=== PATIENT | female | born 1970 | race Two or more races ===

== ENCOUNTER 2019-08-13 14:57 | Inpatient (IN) | payer OTHER ==
[2019-08-13 18:22] VITALS: BMI 35.2
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
[2019-08-13] MEDS ORDERED: IBUPROFEN 400 MG TABLET (FP) PO PRN (20:50)
[2019-08-13] MEDS ORDERED: LOPERAMIDE HCL 2 MG CAPSULE PO PRN (20:50)
[2019-08-13] MEDS ORDERED: MENTHOL/PHENOL 1 EACH UD MM PRN (20:50)
[2019-08-13] MEDS ORDERED: P-EPHED 60MG/TRIPROLIDI 2.5MG TABLET PO PRN (20:50)
[2019-08-13] MEDS ORDERED: guaiFENesin 200 MG/10 ML 10 ML UNIT-DOSE CUPS PO PRN (20:50)
[2019-08-13] MEDS: NICOTINE 21 MG/24 HOURS TOPICAL PATCH TD SCH (23:17)
[2019-08-13] MEDS: THIAMINE HCL 100 MG TABLET (FP) PO SCH (23:17)
[2019-08-13] MEDS: ACETAMINOPHEN 325 MG TABLET (FP) PO PRN (23:17)
[2019-08-13] MEDS: diphenhydrAMINE HCL 25 MG CAPSULE (FP) PO PRN (23:17)
[2019-08-13] MEDS: GABAPENTIN 100 MG CAPSULE (FP) PO SCH (23:17)
[2019-08-14] MEDS: GABAPENTIN 100 MG CAPSULE (FP) PO SCH ×3 (06:31→21:54)
[2019-08-14] MEDS: ACETAMINOPHEN 325 MG TABLET (FP) PO PRN ×2 (06:31→10:40)
[2019-08-14] MEDS ORDERED: LEVOTHYROXINE NA 150 MCG TABLET PO SCH (07:00)
[2019-08-14] MEDS ORDERED: LEVOTHYROXINE NA 100 MCG TABLET (FP) ONE (07:19)
[2019-08-14] MEDS ORDERED: LEVOTHYROXINE NA 25 MCG TABLET (FP) ONE (07:19)
[2019-08-14] MEDS: LEVOTHYROXINE 50 MCG, LEVOTHYROXINE 100 MCG PO SCH (07:28)
[2019-08-14] MEDS: MAGNESIUM HYDROX 2400MG/30ML ORAL SUSPENSION 30 ML CUP PO PRN (10:36)
[2019-08-14] MEDS: NICOTINE 21 MG/24 HOURS TOPICAL PATCH TD SCH (10:37)
[2019-08-14] MEDS: PRENATAL VITAMINS W/ FOLIC ACID TABLET (FP) PO SCH (10:37)
[2019-08-14] MEDS: NICOTINE POLACRILEX 2 MG GUM BUC PRN ×2 (10:39→17:06)
[2019-08-14] MEDS: VITAMINS A AND D TOPICAL OINTMENT 60 GM TUBE TP SCH (11:17)
[2019-08-14 12:31] LABS: HEMATOCRIT 42.1 % (32.4-45.2); HEMOGLOBIN 13.5 GM/dL (10.7-15.3); MCH 25.2 pg (25.7-33.7); MEAN CELL VOLUME 78.9 fl (80-96); MEAN PLT VOLUME 8.5 fl (7.5-11.1); PLATELET COUNT 275 K/MM3 (134-434); RBC 5.34 M/mm3 (3.60-5.2); RDW 15.2 % (11.6-15.6); WHITE BLOOD COUNT 4.8 K/mm3 (4.0-10.0)
[2019-08-14 12:42] LABS: EPI CELLS 3.6 /HPF (0-5/HPF); HYALINE CASTS 1 /lpf (0-8); PH,URINE 6.5 (5.0-8.0); URINE APPEARANCE CLEAR; URINE BACTERIA 60.4 /hpf (NEGATIVE); URINE BILIRUBIN NEGATIVE (NEGATIVE); URINE COLOR YELLOW; URINE GLUCOSE (UA) NEGATIVE (NEGATIVE); URINE KETONE NEGATIVE (NEGATIVE); URINE LEUK ESTERASE TRACE (NEGATIVE); URINE NITRITE NEGATIVE (NEGATIVE); URINE PROTEIN NEGATIVE (NEGATIVE); URINE RBC 2 /hpf (0-4); URINE UROBILINOGEN 0.2 mg/dL (0.2-1.0); URINE WBC 2 /hpf (0-5)
[2019-08-14 12:43] LABS: ALBUMIN 3.7 g/dl (3.4-5.0); BILIRUBIN,TOTAL 0.2 mg/dL (0.2-1); CALCIUM 9.1 mg/dL (8.5-10.1); CREATININE 0.9 mg/dL (0.55-1.3); POTASSIUM 4.4 mmol/L (3.5-5.1); TOT PROT 6.9 g/dl (6.4-8.2)
[2019-08-14] MEDS: MAG HYDROX/AL HYDROX/SIMETH 30 ML UNIT-DOSE CUP PO PRN (12:58)
--- NOTE | 2019-08-14 13:32 | PN ---
S Progress Note (SOAP) Subjective: patient c/o chest pain, first on the right, then moved to the left. Was given mylanta by nurse Marcus. Reports that her food has been repeating, belching. Also c/o back pain as a result of injury with subsequent surgery of right leg. Objective: General;no apparent distress HEENTM: normocephalic Lungs: clear Heart: s1 s2 Neuro: CN 2-12 intact MSK: Right leg with surgical scar posterior aspect of knee, full weight bearing , steady gait, Extremities: color and temperature equal bilaterally. Surgical scar posterior aspect right knee. slight non-pitting edema right ankle. Vital Signs (72 hours) 08/13/19 08/14/19 08/14/19 18:02 03:30 07:06 Temperature 97.3 F L 97.0 F L Pulse Rate 93 H 85 Respiratory 20 18 18 Rate Blood Pressure 127/92 106/70 08/14/19 12:58 Temperature 97.4 F L Pulse Rate 64 Respiratory 20 Rate Blood Pressure 114/77 CBC, BMP 08/14/19 08:50 08/14/19 08:50 08/14/19 13:27 Assessment: Indigestion right ankle edema-possibly a result of surgery or injury, chronic back pain 08/14/19 13:31 08/14/19 13:31 08/14/19 13:36 Plan: Indigestion: encouraged to take Mylanta as needed, protonix ordered LBP: pt on Flexeril, started on lidoderm patch and anjali-christine Edema, ankle: Instructed to elevate legs, oneyda bandage if needed for support.
[2019-08-14] MEDS: LIDOCAINE 5% TOPICAL PATCH TP SCH (15:10)
[2019-08-14] MEDS: CYCLOBENZAPRINE HCL 5 MG TABLET PO SCH ×2 (15:10→21:54)
[2019-08-14] MEDS: SODIUM CHLORIDE NASAL SPRAY 44 ML BOTTLE NS PRN (15:11)
[2019-08-14] MEDS: diphenhydrAMINE HCL 25 MG CAPSULE (FP) PO PRN (21:54)
[2019-08-14] MEDS: THIAMINE HCL 100 MG TABLET (FP) PO SCH (21:54)
[2019-08-14] MEDS: METHYL SALICYLATE/MENTHOL OINT 30 GM TUBE TP SCH (21:55)
[2019-08-14] MEDS: LIDOCAINE PATCH REMOVAL MC SCH (21:55)
[2019-08-15] MEDS: GABAPENTIN 100 MG CAPSULE (FP) PO SCH ×3 (06:50→21:56)
[2019-08-15] MEDS: ACETAMINOPHEN 325 MG TABLET (FP) PO PRN ×2 (06:50→21:58)
[2019-08-15] MEDS: LEVOTHYROXINE 50 MCG, LEVOTHYROXINE 100 MCG PO SCH (06:50)
[2019-08-15] MEDS: CYCLOBENZAPRINE HCL 5 MG TABLET PO SCH ×3 (06:50→21:56)
[2019-08-15] MEDS: LIDOCAINE 5% TOPICAL PATCH TP SCH (09:27)
[2019-08-15] MEDS: METHYL SALICYLATE/MENTHOL OINT 30 GM TUBE TP SCH (09:27)
[2019-08-15] MEDS: VITAMINS A AND D TOPICAL OINTMENT 60 GM TUBE TP SCH (09:28)
[2019-08-15] MEDS: PRENATAL VITAMINS W/ FOLIC ACID TABLET (FP) PO SCH (09:28)
[2019-08-15] MEDS: NICOTINE 21 MG/24 HOURS TOPICAL PATCH TD SCH (09:28)
[2019-08-15] MEDS: PANTOPRAZOLE 40 MG TABLET (FP) PO SCH (09:28)
[2019-08-15] MEDS: NICOTINE POLACRILEX 2 MG GUM BUC PRN ×2 (12:32→21:30)
[2019-08-15] MEDS ORDERED: NICOTINE 21 MG/24 HOURS TOPICAL PATCH TD SCH (21:40)
--- NOTE | 2019-08-15 21:50 | PN ---
[facility] Progress Note Note: Patient upset. Crying and verbally loud spoken. States needs to see Psych because very anxious and needs vistaril. Has been refusing nicotine patch because wanted to stop. Discussed the side effects of acute nicotine withdrawal and now willing to taper down. Will start on 14 mg x 7 days and then 7 mg x 7 days. Patient states back aches worse in early am and requesting lidocaine patch application earlier. MH: patient states no longer on prozac or haldol. Psych consult in place.
[2019-08-15] MEDS: THIAMINE HCL 100 MG TABLET (FP) PO SCH (21:56)
[2019-08-15] MEDS: MELATONIN 5 MG TABLETS PO PRN (21:57)
[2019-08-15] MEDS: LIDOCAINE PATCH REMOVAL MC SCH (22:45)
[2019-08-15] MEDS: NICOTINE 14 MG/24 HOURS TOPICAL PATCH TD SCH (22:45)
[2019-08-16] MEDS ORDERED: PT OWN MED DRAWER 7, Y5N ONE (05:58)
[2019-08-16] MEDS: LEVOTHYROXINE 50 MCG, LEVOTHYROXINE 100 MCG PO SCH (06:49)
[2019-08-16] MEDS: GABAPENTIN 100 MG CAPSULE (FP) PO SCH ×3 (06:49→21:56)
[2019-08-16] MEDS: CYCLOBENZAPRINE HCL 5 MG TABLET PO SCH ×3 (06:49→21:56)
[2019-08-16] MEDS: ACETAMINOPHEN 325 MG TABLET (FP) PO PRN (06:51)
[2019-08-16] MEDS: hydrOXYzine PAMOATE 50 MG CAPSULE (FP) PO PRN ×2 (06:53→21:56)
[2019-08-16] MEDS: NICOTINE POLACRILEX 2 MG GUM BUC PRN ×2 (09:03→12:18)
[2019-08-16] MEDS: PRENATAL VITAMINS W/ FOLIC ACID TABLET (FP) PO SCH (09:47)
[2019-08-16] MEDS: PANTOPRAZOLE 40 MG TABLET (FP) PO SCH (09:47)
[2019-08-16] MEDS: VITAMINS A AND D TOPICAL OINTMENT 60 GM TUBE TP SCH (09:48)
[2019-08-16] MEDS: SODIUM CHLORIDE NASAL SPRAY 44 ML BOTTLE NS PRN (09:48)
[2019-08-16] MEDS: METHYL SALICYLATE/MENTHOL OINT 30 GM TUBE TP SCH (09:49)
[2019-08-16] MEDS: NICOTINE 14 MG/24 HOURS TOPICAL PATCH TD SCH (09:49)
[2019-08-16] MEDS: LIDOCAINE 5% TOPICAL PATCH TP SCH (09:49)
[2019-08-16] MEDS: MAG HYDROX/AL HYDROX/SIMETH 30 ML UNIT-DOSE CUP PO PRN (17:55)
--- NOTE | 2019-08-16 20:07 | PN ---
[facility] Progress Note Note: stated had yeast infection,diflucan 150 mgs po once
[2019-08-16] MEDS ORDERED: FLUCONAZOLE 150 MG TABLET PO ONE (21:00)
[2019-08-16] MEDS: THIAMINE HCL 100 MG TABLET (FP) PO SCH (21:56)
[2019-08-16] MEDS: MELATONIN 5 MG TABLETS PO PRN (21:58)
[2019-08-16] MEDS: LIDOCAINE PATCH REMOVAL MC SCH (21:58)
[2019-08-17] MEDS: LEVOTHYROXINE 50 MCG, LEVOTHYROXINE 100 MCG PO SCH (06:16)
[2019-08-17] MEDS: GABAPENTIN 100 MG CAPSULE (FP) PO SCH ×3 (06:16→21:43)
[2019-08-17] MEDS: CYCLOBENZAPRINE HCL 5 MG TABLET PO SCH ×3 (06:16→21:44)
[2019-08-17] MEDS: NICOTINE POLACRILEX 2 MG GUM BUC PRN ×3 (06:17→22:26)
[2019-08-17] MEDS: ACETAMINOPHEN 325 MG TABLET (FP) PO PRN ×2 (07:58→21:45)
[2019-08-17] MEDS: NICOTINE 14 MG/24 HOURS TOPICAL PATCH TD SCH (09:33)
[2019-08-17] MEDS: PANTOPRAZOLE 40 MG TABLET (FP) PO SCH (09:52)
[2019-08-17] MEDS: LIDOCAINE 5% TOPICAL PATCH TP SCH (09:52)
[2019-08-17] MEDS: VITAMINS A AND D TOPICAL OINTMENT 60 GM TUBE TP SCH (09:53)
[2019-08-17] MEDS: SODIUM CHLORIDE NASAL SPRAY 44 ML BOTTLE NS PRN (09:53)
[2019-08-17] MEDS: METHYL SALICYLATE/MENTHOL OINT 30 GM TUBE TP SCH (09:54)
[2019-08-17] MEDS: hydrOXYzine PAMOATE 50 MG CAPSULE (FP) PO PRN ×2 (09:54→21:43)
[2019-08-17] MEDS: PRENATAL VITAMINS W/ FOLIC ACID TABLET (FP) PO SCH (09:55)
[2019-08-17] MEDS: MAGNESIUM HYDROX 2400MG/30ML ORAL SUSPENSION 30 ML CUP PO PRN (18:04)
[2019-08-17] MEDS: THIAMINE HCL 100 MG TABLET (FP) PO SCH (21:43)
[2019-08-17] MEDS: LIDOCAINE PATCH REMOVAL MC SCH (21:44)
[2019-08-18] MEDS: LEVOTHYROXINE 50 MCG, LEVOTHYROXINE 100 MCG PO SCH (06:10)
[2019-08-18] MEDS: GABAPENTIN 100 MG CAPSULE (FP) PO SCH ×3 (06:11→21:37)
[2019-08-18] MEDS: CYCLOBENZAPRINE HCL 5 MG TABLET PO SCH ×3 (06:11→21:37)
[2019-08-18] MEDS: ACETAMINOPHEN 325 MG TABLET (FP) PO PRN ×2 (06:14→19:18)
[2019-08-18] MEDS: MAGNESIUM CITRATE 300 ML BOTTLE PO PRN (08:34)
[2019-08-18] MEDS: NICOTINE POLACRILEX 2 MG GUM BUC PRN ×4 (08:40→18:13)
[2019-08-18] MEDS ORDERED: PT OWN MED DRAWER 7, Y5N ONE ×2 (09:07→09:59)
[2019-08-18] MEDS: METHYL SALICYLATE/MENTHOL OINT 30 GM TUBE TP SCH (09:58)
[2019-08-18] MEDS: LIDOCAINE 5% TOPICAL PATCH TP SCH (09:58)
[2019-08-18] MEDS: PANTOPRAZOLE 40 MG TABLET (FP) PO SCH (09:58)
[2019-08-18] MEDS: PRENATAL VITAMINS W/ FOLIC ACID TABLET (FP) PO SCH (09:58)
[2019-08-18] MEDS: VITAMINS A AND D TOPICAL OINTMENT 60 GM TUBE TP SCH (09:59)
[2019-08-18] MEDS: MAG HYDROX/AL HYDROX/SIMETH 30 ML UNIT-DOSE CUP PO PRN (10:00)
[2019-08-18] MEDS: SODIUM CHLORIDE NASAL SPRAY 44 ML BOTTLE NS PRN (10:00)
[2019-08-18] MEDS: NICOTINE 14 MG/24 HOURS TOPICAL PATCH TD SCH (10:01)
[2019-08-18] MEDS: hydrOXYzine PAMOATE 50 MG CAPSULE (FP) PO PRN (19:18)
[2019-08-18] MEDS: LIDOCAINE PATCH REMOVAL MC SCH (21:37)
[2019-08-18] MEDS: MELATONIN 5 MG TABLETS PO PRN (21:37)
[2019-08-18] MEDS: THIAMINE HCL 100 MG TABLET (FP) PO SCH (21:37)
[2019-08-19] MEDS ORDERED: PT OWN MED DRAWER 7, Y5N ONE ×4 (03:28→23:56)
[2019-08-19] MEDS: CYCLOBENZAPRINE HCL 5 MG TABLET PO SCH ×3 (07:19→21:38)
[2019-08-19] MEDS: GABAPENTIN 100 MG CAPSULE (FP) PO SCH ×3 (07:19→21:38)
[2019-08-19] MEDS: LEVOTHYROXINE 50 MCG, LEVOTHYROXINE 100 MCG PO SCH (07:20)
[2019-08-19] MEDS: ACETAMINOPHEN 325 MG TABLET (FP) PO PRN ×3 (07:21→21:44)
[2019-08-19] MEDS: NICOTINE POLACRILEX 2 MG GUM BUC PRN ×4 (07:22→18:23)
[2019-08-19] MEDS: LIDOCAINE 5% TOPICAL PATCH TP SCH (09:28)
[2019-08-19] MEDS: PANTOPRAZOLE 40 MG TABLET (FP) PO SCH (09:29)
[2019-08-19] MEDS: VITAMINS A AND D TOPICAL OINTMENT 60 GM TUBE TP SCH (09:29)
[2019-08-19] MEDS: PRENATAL VITAMINS W/ FOLIC ACID TABLET (FP) PO SCH (09:29)
[2019-08-19] MEDS: METHYL SALICYLATE/MENTHOL OINT 30 GM TUBE TP SCH (09:29)
[2019-08-19] MEDS: NICOTINE 14 MG/24 HOURS TOPICAL PATCH TD SCH (09:30)
--- NOTE | 2019-08-19 12:31 | PREP.REFER ---
HIV PrEP/PEP - PrEP HIV Risk Assessment When was your last HIV test?: two months ago HIV Test offered: Accepted Are you concerned about any sexual encounters past 6 months?: Yes Have you had a STI in the last 6 months?: No Have you shared needles or other equipment?: No Are you interested in daily medication to help prevent HIV?: Yes Recommendation: Consider PrEP referral Comment: [facility]. Will provide a list of places where she can get PrEP - PEP HIV Risk Assessment Are you concerned about sexual encounters in past 72 hours?: No Recommendation: None at this time
--- NOTE | 2019-08-19 15:23 | PN ---
[facility] Progress Note (SOAP) Subjective: patient reports unprotected sex with a male partner of unknown HIV status. Reports occasional sex with partners of unknown status. Now reporting vaginal discharge that is staining her pants. She was placed on Diflucan 150mg x 1, but the discharge persist. RPR was negative. PrEP screen initiated. Objective: Exam: General: no apparent distress HEENTM: moist mucus membranes, PERRLA Lung: clear Heart: s1 s2 Genitourinary: refused. neuro: Cn 2-12 intact 08/19/19 15:25 Laboratory Last Values WBC 4.8 K/mm3 (4.0-10.0) 08/14/19 08:50 RBC 5.34 M/mm3 (3.60-5.2) H 08/14/19 08:50 Hgb 13.5 GM/dL (10.7-15.3) 08/14/19 08:50 Hct 42.1 % (32.4-45.2) D 08/14/19 08:50 MCV 78.9 fl (80-96) L 08/14/19 08:50 MCH 25.2 pg (25.7-33.7) L 08/14/19 08:50 MCHC 32.0 g/dl (32.0-36.0) 08/14/19 08:50 RDW 15.2 % (11.6-15.6) 08/14/19 08:50 Plt Count 275 K/MM3 (134-434) 08/14/19 08:50 MPV 8.5 fl (7.5-11.1) 08/14/19 08:50 Sodium 140 mmol/L (136-145) 08/14/19 08:50 Potassium 4.4 mmol/L (3.5-5.1) 08/14/19 08:50 Chloride 107 mmol/L (98-107) 08/14/19 08:50 Carbon Dioxide 25 mmol/L (21-32) 08/14/19 08:50 Anion Gap 8 MMOL/L (8-16) 08/14/19 08:50 BUN 17.0 mg/dL (7-18) 08/14/19 08:50 Creatinine 0.9 mg/dL (0.55-1.3) 08/14/19 08:50 Est GFR (CKD-EPI)AfAm 87.63 08/14/19 08:50 Est GFR (CKD-EPI)NonAf 75.61 08/14/19 08:50 Random Glucose 102 mg/dL (74-106) 08/14/19 08:50 Calcium 9.1 mg/dL (8.5-10.1) 08/14/19 08:50 Total Bilirubin 0.2 mg/dL (0.2-1) 08/14/19 08:50 AST 12 U/L (15-37) L 08/14/19 08:50 ALT 19 U/L (13-61) 08/14/19 08:50 Alkaline Phosphatase 103 U/L (45-117) 08/14/19 08:50 Total Protein 6.9 g/dl (6.4-8.2) 08/14/19 08:50 Albumin 3.7 g/dl (3.4-5.0) 08/14/19 08:50 Urine Color Yellow 08/14/19 09:20 Urine Appearance Clear 08/14/19 09:20 Urine pH 6.5 (5.0-8.0) 08/14/19 09:20 Ur Specific [place] 1.021 (1.010-1.035) 08/14/19 09:20 Urine Protein Negative (NEGATIVE) 08/14/19 09:20 Urine Glucose (UA) Negative (NEGATIVE) 08/14/19 09:20 Urine Ketones Negative (NEGATIVE) 08/14/19 09:20 Urine Blood Negative (NEGATIVE) 08/14/19 09:20 Urine Nitrite Negative (NEGATIVE) 08/14/19 09:20 Urine Bilirubin Negative (NEGATIVE) 08/14/19 09:20 Urine Urobilinogen 0.2 mg/dL (0.2-1.0) 08/14/19 09:20 Ur Leukocyte Esterase Trace (NEGATIVE) 08/14/19 09:20 Urine WBC (Auto) 2 /hpf (0-5) 08/14/19 09:20 Urine RBC (Auto) 2 /hpf (0-4) 08/14/19 09:20 Urine Casts (Auto) 1 /lpf (0-8) 08/14/19 09:20 U Epithel Cells (Auto) 3.6 /HPF (0-5/HPF) 08/14/19 09:20 Urine Bacteria (Auto) 60.4 /hpf (NEGATIVE) 08/14/19 09:20 POC Urine HCG, Qual Negative 08/13/19 19:18 RPR Titer Nonreactive (NONREACTIVE) 08/14/19 09:00 Assessment: At risk for STI, At risk for HIV infection 08/19/19 15:27 Plan: Patient is a candidate for PrEP; will provide list of resources Metrogel vaginal suppositories ordered GC/chlamydia ordered HIV test ordered Urine culture ordered. Will continue to monitor.
[2019-08-19] MEDS: hydrOXYzine PAMOATE 50 MG CAPSULE (FP) PO PRN (18:22)
[2019-08-19] MEDS: MELATONIN 5 MG TABLETS PO PRN (21:38)
[2019-08-19] MEDS: THIAMINE HCL 100 MG TABLET (FP) PO SCH (21:38)
[2019-08-19] MEDS: metroNIDAZOLE 0.75% VAGINAL GEL 70 GM TUBE VG SCH (21:40)
[2019-08-19] MEDS: LIDOCAINE PATCH REMOVAL MC SCH (21:41)
[2019-08-19] MEDS: DOCUSATE SODIUM 100 MG CAPSULE (FP) PO SCH (21:42)
[2019-08-20] MEDS ORDERED: PT OWN MED DRAWER 7, Y5N ONE ×3 (03:27→19:42)
[2019-08-20] MEDS: LEVOTHYROXINE 50 MCG, LEVOTHYROXINE 100 MCG PO SCH (06:19)
[2019-08-20] MEDS: GABAPENTIN 100 MG CAPSULE (FP) PO SCH ×3 (06:19→22:02)
[2019-08-20] MEDS: CYCLOBENZAPRINE HCL 5 MG TABLET PO SCH ×3 (06:19→22:06)
[2019-08-20] MEDS: ACETAMINOPHEN 325 MG TABLET (FP) PO PRN ×2 (06:20→18:38)
[2019-08-20] MEDS: NICOTINE POLACRILEX 2 MG GUM BUC PRN ×5 (06:21→22:04)
[2019-08-20] MEDS: LIDOCAINE 5% TOPICAL PATCH TP SCH (09:16)
[2019-08-20] MEDS: METHYL SALICYLATE/MENTHOL OINT 30 GM TUBE TP SCH (09:17)
[2019-08-20] MEDS: PRENATAL VITAMINS W/ FOLIC ACID TABLET (FP) PO SCH (09:18)
[2019-08-20] MEDS: NICOTINE 14 MG/24 HOURS TOPICAL PATCH TD SCH (09:18)
[2019-08-20] MEDS: PANTOPRAZOLE 40 MG TABLET (FP) PO SCH (09:18)
[2019-08-20] MEDS: VITAMINS A AND D TOPICAL OINTMENT 60 GM TUBE TP SCH (09:19)
[2019-08-20] MEDS: MAG HYDROX/AL HYDROX/SIMETH 30 ML UNIT-DOSE CUP PO PRN (15:40)
[2019-08-20] MEDS: DOCUSATE SODIUM 100 MG CAPSULE (FP) PO SCH (22:02)
[2019-08-20] MEDS: metroNIDAZOLE 0.75% VAGINAL GEL 70 GM TUBE VG SCH (22:03)
[2019-08-20] MEDS: LIDOCAINE PATCH REMOVAL MC SCH (22:03)
[2019-08-20] MEDS: THIAMINE HCL 100 MG TABLET (FP) PO SCH (22:05)
[2019-08-20] MEDS: MELATONIN 5 MG TABLETS PO PRN (22:05)
[2019-08-21] MEDS ORDERED: PT OWN MED DRAWER 7, Y5N ONE ×5 (03:31→23:32)
[2019-08-21] MEDS: CYCLOBENZAPRINE HCL 5 MG TABLET PO SCH (06:36)
[2019-08-21] MEDS: GABAPENTIN 100 MG CAPSULE (FP) PO SCH ×3 (06:36→21:14)
[2019-08-21] MEDS: ACETAMINOPHEN 325 MG TABLET (FP) PO PRN ×2 (06:36→10:47)
[2019-08-21] MEDS: LEVOTHYROXINE 50 MCG, LEVOTHYROXINE 100 MCG PO SCH (06:36)
[2019-08-21] MEDS: NICOTINE POLACRILEX 2 MG GUM BUC PRN ×4 (06:37→21:16)
[2019-08-21] MEDS: VITAMINS A AND D TOPICAL OINTMENT 60 GM TUBE TP SCH (10:20)
[2019-08-21] MEDS: PRENATAL VITAMINS W/ FOLIC ACID TABLET (FP) PO SCH (10:21)
[2019-08-21] MEDS: PANTOPRAZOLE 40 MG TABLET (FP) PO SCH (10:21)
[2019-08-21] MEDS: NICOTINE 14 MG/24 HOURS TOPICAL PATCH TD SCH (10:46)
[2019-08-21] MEDS: LIDOCAINE 5% TOPICAL PATCH TP SCH (10:48)
[2019-08-21] MEDS: METHYL SALICYLATE/MENTHOL OINT 30 GM TUBE TP SCH (10:48)
[2019-08-21] MEDS ORDERED: ACETAMINOPHEN 500 MG TABLET (FP) PO ONE (11:44)
[2019-08-21] MEDS ORDERED: CYCLOBENZAPRINE HCL 10 MG TABLET (FP) PO SCH (11:47)
[2019-08-21] MEDS: hydrOXYzine PAMOATE 50 MG CAPSULE (FP) PO PRN (12:07)
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
--- NOTE | 2019-08-21 13:34 | PN ---
S Progress Note (SOAP) Subjective: Patient c/o back pain radiating down her spine from her neck to her tailbone. Was given tylenol 650mg, lidoderm patch, and anjali-christine by the nurse but continues to complain of pain. Requesting toradol. Objective: P/E General: appears to be in pain, crying Neck: supple. Back: tender to palpation, unable to lie supine Extremities: +pulses throughout Neuro: no neurological deficits notes 08/21/19 13:31 Assessment: Back pain Unable to take toradol or motrin because of HEP C. 08/21/19 13:32 08/21/19 13:33 Plan: Patient given stat dose of tylenol 500mg. Flexeril increased to 10mg and given stat (2pm dose held). Bed rest. Continue to monitor.
[2019-08-21] MEDS ORDERED: HALOPERIDOL 2 MG TABLET PO PRN (13:51)
[2019-08-21] MEDS ORDERED: BENZTROPINE MESYLATE 0.5 MG TABLET (FP) PO PRN (13:52)
[2019-08-21] MEDS: CYCLOBENZAPRINE HCL 10 MG TABLET (FP) PO SCH ×2 (13:59→21:12)
[2019-08-21] MEDS: NAPROXEN 500 MG TABLET (FP) PO SCH ×2 (15:48→21:13)
[2019-08-21] MEDS: metroNIDAZOLE 0.75% VAGINAL GEL 70 GM TUBE VG SCH (21:12)
[2019-08-21] MEDS: LIDOCAINE PATCH REMOVAL MC SCH (21:12)
[2019-08-21] MEDS: DOCUSATE SODIUM 100 MG CAPSULE (FP) PO SCH (21:12)
[2019-08-21] MEDS: MIRTAZAPINE 15 MG TABLET (FP) PO SCH (21:14)
[2019-08-21] MEDS: THIAMINE HCL 100 MG TABLET (FP) PO SCH (21:14)
[2019-08-21] MEDS: SODIUM CHLORIDE NASAL SPRAY 44 ML BOTTLE NS PRN (21:15)
[2019-08-21] MEDS: HALOPERIDOL 2 MG TABLET PO PRN (23:31)
[2019-08-21] MEDS: BENZTROPINE MESYLATE 1 MG TABLET (FP) PO PRN (23:31)
[2019-08-22] MEDS ORDERED: PT OWN MED DRAWER 7, Y5N ONE ×2 (06:14→08:43)
[2019-08-22] MEDS: CYCLOBENZAPRINE HCL 10 MG TABLET (FP) PO SCH ×3 (06:56→22:42)
[2019-08-22] MEDS: GABAPENTIN 100 MG CAPSULE (FP) PO SCH ×3 (06:56→21:37)
[2019-08-22] MEDS: LEVOTHYROXINE 50 MCG, LEVOTHYROXINE 100 MCG PO SCH (06:56)
[2019-08-22] MEDS: NICOTINE POLACRILEX 2 MG GUM BUC PRN ×3 (06:58→18:09)
[2019-08-22] MEDS: LIDOCAINE 5% TOPICAL PATCH TP SCH (10:09)
[2019-08-22] MEDS: PRENATAL VITAMINS W/ FOLIC ACID TABLET (FP) PO SCH (10:10)
[2019-08-22] MEDS: PANTOPRAZOLE 40 MG TABLET (FP) PO SCH (10:10)
[2019-08-22] MEDS: NAPROXEN 500 MG TABLET (FP) PO SCH ×2 (10:10→21:37)
[2019-08-22] MEDS: NICOTINE 14 MG/24 HOURS TOPICAL PATCH TD SCH (10:12)
[2019-08-22] MEDS: METHYL SALICYLATE/MENTHOL OINT 30 GM TUBE TP SCH (10:13)
[2019-08-22] MEDS: VITAMINS A AND D TOPICAL OINTMENT 60 GM TUBE TP SCH (10:14)
[2019-08-22] MEDS: hydrOXYzine PAMOATE 50 MG CAPSULE (FP) PO PRN (12:13)
[2019-08-22] MEDS: DOCUSATE SODIUM 100 MG CAPSULE (FP) PO SCH (21:36)
[2019-08-22] MEDS: THIAMINE HCL 100 MG TABLET (FP) PO SCH (21:37)
[2019-08-22] MEDS: MIRTAZAPINE 15 MG TABLET (FP) PO SCH (21:37)
[2019-08-22] MEDS: metroNIDAZOLE 0.75% VAGINAL GEL 70 GM TUBE VG SCH (21:38)
[2019-08-22] MEDS: LIDOCAINE PATCH REMOVAL MC SCH (22:43)
[2019-08-23] MEDS ORDERED: PT OWN MED DRAWER 7, Y5N ONE ×3 (03:42→21:08)
[2019-08-23] MEDS: CYCLOBENZAPRINE HCL 10 MG TABLET (FP) PO SCH ×3 (06:38→21:05)
[2019-08-23] MEDS: GABAPENTIN 100 MG CAPSULE (FP) PO SCH ×3 (06:38→21:05)
[2019-08-23] MEDS: LEVOTHYROXINE 50 MCG, LEVOTHYROXINE 100 MCG PO SCH (06:39)
[2019-08-23] MEDS: NICOTINE POLACRILEX 2 MG GUM BUC PRN ×3 (06:40→19:41)
[2019-08-23] MEDS: ACETAMINOPHEN 325 MG TABLET (FP) PO PRN (06:40)
[2019-08-23] MEDS: SODIUM CHLORIDE NASAL SPRAY 44 ML BOTTLE NS PRN (09:54)
[2019-08-23] MEDS: PANTOPRAZOLE 40 MG TABLET (FP) PO SCH (09:55)
[2019-08-23] MEDS: PRENATAL VITAMINS W/ FOLIC ACID TABLET (FP) PO SCH (09:55)
[2019-08-23] MEDS: LIDOCAINE 5% TOPICAL PATCH TP SCH (09:55)
[2019-08-23] MEDS: NICOTINE 7 MG/24 HOURS TOPICAL PATCH TD SCH (09:56)
[2019-08-23] MEDS: VITAMINS A AND D TOPICAL OINTMENT 60 GM TUBE TP SCH (09:56)
[2019-08-23] MEDS: METHYL SALICYLATE/MENTHOL OINT 30 GM TUBE TP SCH (10:00)
[2019-08-23] MEDS: hydrOXYzine PAMOATE 50 MG CAPSULE (FP) PO PRN (16:53)
[2019-08-23] MEDS: MAGNESIUM HYDROX 2400MG/30ML ORAL SUSPENSION 30 ML CUP PO PRN (18:58)
[2019-08-23] MEDS: DOCUSATE SODIUM 100 MG CAPSULE (FP) PO SCH (21:05)
[2019-08-23] MEDS: MELATONIN 5 MG TABLETS PO PRN (21:05)
[2019-08-23] MEDS: THIAMINE HCL 100 MG TABLET (FP) PO SCH (21:05)
[2019-08-23] MEDS: MIRTAZAPINE 15 MG TABLET (FP) PO SCH (21:05)
[2019-08-23] MEDS: metroNIDAZOLE 0.75% VAGINAL GEL 70 GM TUBE VG SCH (21:07)
[2019-08-23] MEDS: LIDOCAINE PATCH REMOVAL MC SCH (21:08)
[2019-08-24] MEDS ORDERED: PT OWN MED DRAWER 7, Y5N ONE (05:44)
[2019-08-24] MEDS: NICOTINE POLACRILEX 2 MG GUM BUC PRN ×4 (06:13→20:40)
[2019-08-24] MEDS: GABAPENTIN 100 MG CAPSULE (FP) PO SCH ×3 (06:13→21:44)
[2019-08-24] MEDS: LEVOTHYROXINE 50 MCG, LEVOTHYROXINE 100 MCG PO SCH (06:13)
[2019-08-24] MEDS: CYCLOBENZAPRINE HCL 10 MG TABLET (FP) PO SCH ×3 (06:13→21:45)
[2019-08-24] MEDS: PRENATAL VITAMINS W/ FOLIC ACID TABLET (FP) PO SCH (09:25)
[2019-08-24] MEDS: PANTOPRAZOLE 40 MG TABLET (FP) PO SCH (09:25)
[2019-08-24] MEDS: NICOTINE 7 MG/24 HOURS TOPICAL PATCH TD SCH (09:26)
[2019-08-24] MEDS: LIDOCAINE 5% TOPICAL PATCH TP SCH (09:26)
[2019-08-24] MEDS: VITAMINS A AND D TOPICAL OINTMENT 60 GM TUBE TP SCH (09:27)
[2019-08-24] MEDS: METHYL SALICYLATE/MENTHOL OINT 30 GM TUBE TP SCH (09:28)
[2019-08-24] MEDS: SODIUM CHLORIDE NASAL SPRAY 44 ML BOTTLE NS PRN (09:29)
[2019-08-24] MEDS: MAGNESIUM CITRATE 300 ML BOTTLE PO PRN (09:36)
[2019-08-24] MEDS: hydrOXYzine PAMOATE 50 MG CAPSULE (FP) PO PRN (13:49)
[2019-08-24] MEDS: ACETAMINOPHEN 325 MG TABLET (FP) PO PRN (20:38)
[2019-08-24] MEDS: THIAMINE HCL 100 MG TABLET (FP) PO SCH (21:44)
[2019-08-24] MEDS: DOCUSATE SODIUM 100 MG CAPSULE (FP) PO SCH (21:44)
[2019-08-24] MEDS: MIRTAZAPINE 15 MG TABLET (FP) PO SCH (21:44)
[2019-08-24] MEDS: MELATONIN 5 MG TABLETS PO PRN (21:45)
[2019-08-24] MEDS: LIDOCAINE PATCH REMOVAL MC SCH (21:46)
[2019-08-25] MEDS: GABAPENTIN 100 MG CAPSULE (FP) PO SCH ×3 (07:39→22:03)
[2019-08-25] MEDS: CYCLOBENZAPRINE HCL 10 MG TABLET (FP) PO SCH ×3 (07:39→22:03)
[2019-08-25] MEDS: LEVOTHYROXINE 50 MCG, LEVOTHYROXINE 100 MCG PO SCH (07:39)
[2019-08-25] MEDS: NICOTINE POLACRILEX 2 MG GUM BUC PRN ×3 (07:40→17:47)
[2019-08-25] MEDS ORDERED: PT OWN MED DRAWER 7, Y5N ONE (09:02)
[2019-08-25] MEDS: PANTOPRAZOLE 40 MG TABLET (FP) PO SCH (09:36)
[2019-08-25] MEDS: METHYL SALICYLATE/MENTHOL OINT 30 GM TUBE TP SCH (09:36)
[2019-08-25] MEDS: VITAMINS A AND D TOPICAL OINTMENT 60 GM TUBE TP SCH (09:36)
[2019-08-25] MEDS: LIDOCAINE 5% TOPICAL PATCH TP SCH (09:36)
[2019-08-25] MEDS: PRENATAL VITAMINS W/ FOLIC ACID TABLET (FP) PO SCH (09:36)
[2019-08-25] MEDS: SODIUM CHLORIDE NASAL SPRAY 44 ML BOTTLE NS PRN (09:37)
[2019-08-25] MEDS: NICOTINE 7 MG/24 HOURS TOPICAL PATCH TD SCH (09:37)
[2019-08-25] MEDS: ACETAMINOPHEN 325 MG TABLET (FP) PO PRN (17:10)
[2019-08-25] MEDS: DOCUSATE SODIUM 100 MG CAPSULE (FP) PO SCH (22:03)
[2019-08-25] MEDS: MIRTAZAPINE 15 MG TABLET (FP) PO SCH (22:03)
[2019-08-25] MEDS: THIAMINE HCL 100 MG TABLET (FP) PO SCH (22:03)
[2019-08-25] MEDS: LIDOCAINE PATCH REMOVAL MC SCH (22:03)
[2019-08-26] MEDS ORDERED: PT OWN MED DRAWER 7, Y5N ONE ×2 (06:00→16:03)
[2019-08-26] MEDS: LEVOTHYROXINE 50 MCG, LEVOTHYROXINE 100 MCG PO SCH (07:16)
[2019-08-26] MEDS: CYCLOBENZAPRINE HCL 10 MG TABLET (FP) PO SCH ×3 (07:16→21:50)
[2019-08-26] MEDS: GABAPENTIN 100 MG CAPSULE (FP) PO SCH ×3 (07:16→21:50)
[2019-08-26] MEDS: LIDOCAINE 5% TOPICAL PATCH TP SCH (09:38)
[2019-08-26] MEDS: PRENATAL VITAMINS W/ FOLIC ACID TABLET (FP) PO SCH (09:39)
[2019-08-26] MEDS: METHYL SALICYLATE/MENTHOL OINT 30 GM TUBE TP SCH (09:39)
[2019-08-26] MEDS: NICOTINE 7 MG/24 HOURS TOPICAL PATCH TD SCH (09:39)
[2019-08-26] MEDS: VITAMINS A AND D TOPICAL OINTMENT 60 GM TUBE TP SCH (09:40)
[2019-08-26] MEDS: PANTOPRAZOLE 40 MG TABLET (FP) PO SCH (09:40)
[2019-08-26] MEDS: hydrOXYzine PAMOATE 50 MG CAPSULE (FP) PO PRN ×2 (11:07→19:00)
[2019-08-26] MEDS: NICOTINE POLACRILEX 2 MG GUM BUC PRN (11:08)
[2019-08-26] MEDS: NAPROXEN 500 MG TABLET (FP) PO PRN ×2 (14:28→21:50)
[2019-08-26] MEDS: MINERAL OIL/PETROLAT/WATER TOPICAL CREAM 113 GM JAR TP SCH (14:40)
[2019-08-26] MEDS: THIAMINE HCL 100 MG TABLET (FP) PO SCH (21:49)
[2019-08-26] MEDS: MIRTAZAPINE 15 MG TABLET (FP) PO SCH (21:49)
[2019-08-26] MEDS: DOCUSATE SODIUM 100 MG CAPSULE (FP) PO SCH (21:50)
[2019-08-26] MEDS: LIDOCAINE PATCH REMOVAL MC SCH (21:51)
[2019-08-26] MEDS: MELATONIN 5 MG TABLETS PO PRN (21:51)
[2019-08-27] MEDS ORDERED: PT OWN MED DRAWER 7, Y5N ONE ×2 (03:06→15:27)
[2019-08-27] MEDS: LEVOTHYROXINE 50 MCG, LEVOTHYROXINE 100 MCG PO SCH (06:07)
[2019-08-27] MEDS: CYCLOBENZAPRINE HCL 10 MG TABLET (FP) PO SCH ×3 (06:07→21:33)
[2019-08-27] MEDS: GABAPENTIN 100 MG CAPSULE (FP) PO SCH ×3 (06:07→21:33)
[2019-08-27] MEDS: NICOTINE POLACRILEX 2 MG GUM BUC PRN ×2 (06:08→17:32)
[2019-08-27] MEDS: PRENATAL VITAMINS W/ FOLIC ACID TABLET (FP) PO SCH (09:52)
[2019-08-27] MEDS: PANTOPRAZOLE 40 MG TABLET (FP) PO SCH (09:52)
[2019-08-27] MEDS: NICOTINE 7 MG/24 HOURS TOPICAL PATCH TD SCH (09:53)
[2019-08-27] MEDS: METHYL SALICYLATE/MENTHOL OINT 30 GM TUBE TP SCH (09:53)
[2019-08-27] MEDS: MINERAL OIL/PETROLAT/WATER TOPICAL CREAM 113 GM JAR TP SCH (09:53)
[2019-08-27] MEDS: LIDOCAINE 5% TOPICAL PATCH TP SCH (09:53)
[2019-08-27] MEDS: VITAMINS A AND D TOPICAL OINTMENT 60 GM TUBE TP SCH (09:55)
[2019-08-27] MEDS: hydrOXYzine PAMOATE 50 MG CAPSULE (FP) PO PRN (15:29)
[2019-08-27] MEDS: MIRTAZAPINE 15 MG TABLET (FP) PO SCH (21:33)
[2019-08-27] MEDS: DOCUSATE SODIUM 100 MG CAPSULE (FP) PO SCH (21:33)
[2019-08-27] MEDS: MELATONIN 5 MG TABLETS PO PRN (21:33)
[2019-08-27] MEDS: NAPROXEN 500 MG TABLET (FP) PO PRN (21:33)
[2019-08-27] MEDS: THIAMINE HCL 100 MG TABLET (FP) PO SCH (21:33)
[2019-08-27] MEDS: LIDOCAINE PATCH REMOVAL MC SCH (21:34)
[2019-08-28] MEDS: LEVOTHYROXINE 50 MCG, LEVOTHYROXINE 100 MCG PO SCH (07:27)
[2019-08-28] MEDS: CYCLOBENZAPRINE HCL 10 MG TABLET (FP) PO SCH ×3 (07:27→21:25)
[2019-08-28] MEDS: GABAPENTIN 100 MG CAPSULE (FP) PO SCH ×3 (07:27→21:23)
[2019-08-28] MEDS ORDERED: PT OWN MED DRAWER 7, Y5N ONE (08:45)
[2019-08-28] MEDS: PANTOPRAZOLE 40 MG TABLET (FP) PO SCH (09:53)
[2019-08-28] MEDS: NICOTINE 7 MG/24 HOURS TOPICAL PATCH TD SCH (09:53)
[2019-08-28] MEDS: PRENATAL VITAMINS W/ FOLIC ACID TABLET (FP) PO SCH (09:53)
[2019-08-28] MEDS: NAPROXEN 500 MG TABLET (FP) PO PRN ×2 (09:54→19:34)
[2019-08-28] MEDS: VITAMINS A AND D TOPICAL OINTMENT 60 GM TUBE TP SCH (09:55)
[2019-08-28] MEDS: METHYL SALICYLATE/MENTHOL OINT 30 GM TUBE TP SCH (09:55)
[2019-08-28] MEDS: MINERAL OIL/PETROLAT/WATER TOPICAL CREAM 113 GM JAR TP SCH (09:55)
[2019-08-28] MEDS: LIDOCAINE 5% TOPICAL PATCH TP SCH (09:59)
[2019-08-28] MEDS ORDERED: metroNIDAZOLE 250 MG TABLET PO ONE ×2 (11:39→14:00)
--- NOTE | 2019-08-28 11:58 | PN ---
[facility] Progress Note Note: Lab review and follow up of c/o unresolved vaginal symptoms. Pt also c/o blood in stool yesterday once. Denies reocurrence today. Reports she is on colace at night(300 mg po HS). Laboratory Tests 08/13/19 08/14/19 08/14/19 19:18 08:50 08:50 WBC 4.8 RBC 5.34 H Hgb 13.5 Hct 42.1 D MCV 78.9 L MCH 25.2 L MCHC 32.0 RDW 15.2 Plt Count 275 MPV 8.5 Sodium 140 Potassium 4.4 Chloride 107 Carbon Dioxide 25 Anion Gap 8 BUN 17.0 Creatinine 0.9 Est GFR (CKD-EPI)AfAm 87.63 Est GFR (CKD-EPI)NonAf 75.61 Random Glucose 102 Calcium 9.1 Total Bilirubin 0.2 AST 12 L ALT 19 Alkaline Phosphatase 103 Total Protein 6.9 Albumin 3.7 Urine Color Urine Appearance Urine pH Ur Specific [place] Urine Protein Urine Glucose (UA) Urine Ketones Urine Blood Urine Nitrite Urine Bilirubin Urine Urobilinogen Ur Leukocyte Esterase Urine WBC (Auto) Urine RBC (Auto) Urine Casts (Auto) U Epithel Cells (Auto) Urine Bacteria (Auto) POC Urine HCG, Qual Negative RPR Titer C. trachomatis ([place]) HIV 1&2 Ag/Ab, 4th Gen N.gonorrhoeae DNA ([place]) T. vaginalis ([place]) 08/14/19 08/14/19 08/20/19 09:00 09:20 08:00 WBC RBC Hgb Hct MCV MCH MCHC RDW Plt Count MPV Sodium Potassium Chloride Carbon Dioxide Anion Gap BUN Creatinine Est GFR (CKD-EPI)AfAm Est GFR (CKD-EPI)NonAf Random Glucose Calcium Total Bilirubin AST ALT Alkaline Phosphatase Total Protein Albumin Urine Color Yellow Urine Appearance Clear Urine pH 6.5 Ur Specific [place] 1.021 Urine Protein Negative Urine Glucose (UA) Negative Urine Ketones Negative Urine Blood Negative Urine Nitrite Negative Urine Bilirubin Negative Urine Urobilinogen 0.2 Ur Leukocyte Esterase Trace Urine WBC (Auto) 2 Urine RBC (Auto) 2 Urine Casts (Auto) 1 U Epithel Cells (Auto) 3.6 Urine Bacteria (Auto) 60.4 POC Urine HCG, Qual RPR Titer Nonreactive C. trachomatis ([place]) HIV 1&2 Ag/Ab, 4th Gen Non reactive N.gonorrhoeae DNA ([place]) T. vaginalis ([place]) 08/25/19 12:30 WBC RBC Hgb Hct MCV MCH MCHC RDW Plt Count MPV Sodium Potassium Chloride Carbon Dioxide Anion Gap BUN Creatinine Est GFR (CKD-EPI)AfAm Est GFR (CKD-EPI)NonAf Random Glucose Calcium Total Bilirubin AST ALT Alkaline Phosphatase Total Protein Albumin Urine Color Urine Appearance Urine pH Ur Specific [place] Urine Protein Urine Glucose (UA) Urine Ketones Urine Blood Urine Nitrite Urine Bilirubin Urine Urobilinogen Ur Leukocyte Esterase Urine WBC (Auto) Urine RBC (Auto) Urine Casts (Auto) U Epithel Cells (Auto) Urine Bacteria (Auto) POC Urine HCG, Qual RPR Titer C. trachomatis ([place]) Negative HIV 1&2 Ag/Ab, 4th Gen N.gonorrhoeae DNA ([place]) Negative T. vaginalis ([place]) Positive H lab results noted for specimen of 08/25/19: C.trachomatis Negative N. gonorrhoeae Negative T. 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 Pt still c/o vaginal symptoms-increased yellowish foul smelling discharge,frequent urination which is not abating with other treatments- diflucan 150 mg x 1 on 08/16/19 and Metrogel vaginal supp.on 08/19/19. D/w pt the results above and informed will be treated with flagyl 2gm po x once Encouraged to increase po fluids. D/W pt to monitor for further episode of blood in stool and report to staff. Pt is agreeable with poc.
[2019-08-28] MEDS: hydrOXYzine PAMOATE 50 MG CAPSULE (FP) PO PRN (12:29)
[2019-08-28] MEDS: NICOTINE POLACRILEX 2 MG GUM BUC PRN (12:29)
[2019-08-28] MEDS: MAG HYDROX/AL HYDROX/SIMETH 30 ML UNIT-DOSE CUP PO PRN (18:02)
[2019-08-28] MEDS: MIRTAZAPINE 15 MG TABLET (FP) PO SCH (21:23)
[2019-08-28] MEDS: THIAMINE HCL 100 MG TABLET (FP) PO SCH (21:23)
[2019-08-28] MEDS: MELATONIN 5 MG TABLETS PO PRN (21:23)
[2019-08-28] MEDS: DOCUSATE SODIUM 100 MG CAPSULE (FP) PO SCH (21:23)
[2019-08-28] MEDS: LIDOCAINE PATCH REMOVAL MC SCH (21:25)
[2019-08-28] MEDS ORDERED: metroNIDAZOLE 250 MG TABLET PO SCH (22:00)
[2019-08-29] MEDS: GABAPENTIN 100 MG CAPSULE (FP) PO SCH ×3 (06:18→21:35)
[2019-08-29] MEDS: CYCLOBENZAPRINE HCL 10 MG TABLET (FP) PO SCH ×3 (06:18→21:35)
[2019-08-29] MEDS: LEVOTHYROXINE 50 MCG, LEVOTHYROXINE 100 MCG PO SCH (06:18)
[2019-08-29] MEDS: NICOTINE POLACRILEX 2 MG GUM BUC PRN ×3 (06:18→16:59)
[2019-08-29] MEDS ORDERED: PT OWN MED DRAWER 7, Y5N ONE ×2 (08:15→10:25)
[2019-08-29] MEDS: METHYL SALICYLATE/MENTHOL OINT 30 GM TUBE TP SCH (09:34)
[2019-08-29] MEDS: LIDOCAINE 5% TOPICAL PATCH TP SCH (09:34)
[2019-08-29] MEDS: NICOTINE 7 MG/24 HOURS TOPICAL PATCH TD SCH (09:35)
[2019-08-29] MEDS: MINERAL OIL/PETROLAT/WATER TOPICAL CREAM 113 GM JAR TP SCH (09:35)
[2019-08-29] MEDS: hydrOXYzine PAMOATE 50 MG CAPSULE (FP) PO PRN (09:36)
[2019-08-29] MEDS: PRENATAL VITAMINS W/ FOLIC ACID TABLET (FP) PO SCH (09:36)
[2019-08-29] MEDS: VITAMINS A AND D TOPICAL OINTMENT 60 GM TUBE TP SCH (09:36)
[2019-08-29] MEDS: PANTOPRAZOLE 40 MG TABLET (FP) PO SCH (09:36)
[2019-08-29] MEDS: NAPROXEN 500 MG TABLET (FP) PO PRN (09:38)
[2019-08-29] MEDS: MIRTAZAPINE 15 MG TABLET (FP) PO SCH (21:35)
[2019-08-29] MEDS: THIAMINE HCL 100 MG TABLET (FP) PO SCH (21:35)
[2019-08-29] MEDS: MELATONIN 5 MG TABLETS PO PRN (21:35)
[2019-08-29] MEDS: DOCUSATE SODIUM 100 MG CAPSULE (FP) PO SCH (21:35)
[2019-08-29] MEDS: LIDOCAINE PATCH REMOVAL MC SCH (21:36)
[2019-08-30] MEDS ORDERED: PT OWN MED DRAWER 7, Y5N ONE ×2 (06:02→08:59)
[2019-08-30] MEDS: CYCLOBENZAPRINE HCL 10 MG TABLET (FP) PO SCH ×3 (06:37→21:34)
[2019-08-30] MEDS: NAPROXEN 500 MG TABLET (FP) PO PRN (06:37)
[2019-08-30] MEDS: GABAPENTIN 100 MG CAPSULE (FP) PO SCH ×3 (06:37→21:33)
[2019-08-30] MEDS: LEVOTHYROXINE 50 MCG, LEVOTHYROXINE 100 MCG PO SCH (06:37)
[2019-08-30] MEDS ORDERED: LEVOTHYROXINE 50 MCG, LEVOTHYROXINE 100 MCG PO SCH (07:00)
[2019-08-30] MEDS ORDERED: LEVOTHYROXINE NA 150 MCG TABLET PO SCH (07:00)
[2019-08-30] MEDS: NICOTINE POLACRILEX 2 MG GUM BUC PRN ×3 (09:15→19:16)
[2019-08-30] MEDS: NICOTINE 7 MG/24 HOURS TOPICAL PATCH TD SCH (09:41)
[2019-08-30] MEDS: METHYL SALICYLATE/MENTHOL OINT 30 GM TUBE TP SCH (09:42)
[2019-08-30] MEDS: SODIUM CHLORIDE NASAL SPRAY 44 ML BOTTLE NS PRN (09:42)
[2019-08-30] MEDS: MINERAL OIL/PETROLAT/WATER TOPICAL CREAM 113 GM JAR TP SCH (09:42)
[2019-08-30] MEDS: PRENATAL VITAMINS W/ FOLIC ACID TABLET (FP) PO SCH (09:43)
[2019-08-30] MEDS: PANTOPRAZOLE 40 MG TABLET (FP) PO SCH (09:43)
[2019-08-30] MEDS: LIDOCAINE 5% TOPICAL PATCH TP SCH (09:43)
[2019-08-30] MEDS: VITAMINS A AND D TOPICAL OINTMENT 60 GM TUBE TP SCH (09:44)
[2019-08-30] MEDS: hydrOXYzine PAMOATE 50 MG CAPSULE (FP) PO PRN (19:15)
[2019-08-30] MEDS: DOCUSATE SODIUM 100 MG CAPSULE (FP) PO SCH (21:33)
[2019-08-30] MEDS: MIRTAZAPINE 15 MG TABLET (FP) PO SCH (21:33)
[2019-08-30] MEDS: MELATONIN 5 MG TABLETS PO PRN (21:33)
[2019-08-30] MEDS: THIAMINE HCL 100 MG TABLET (FP) PO SCH (21:33)
[2019-08-30] MEDS: LIDOCAINE PATCH REMOVAL MC SCH (21:34)
[2019-08-31] MEDS ORDERED: PT OWN MED DRAWER 7, Y5N ONE (05:59)
[2019-08-31] MEDS: LEVOTHYROXINE 50 MCG, LEVOTHYROXINE 100 MCG PO SCH (07:41)
[2019-08-31] MEDS: GABAPENTIN 100 MG CAPSULE (FP) PO SCH ×3 (07:42→21:26)
[2019-08-31] MEDS: CYCLOBENZAPRINE HCL 10 MG TABLET (FP) PO SCH ×3 (07:43→21:27)
[2019-08-31] MEDS: NICOTINE POLACRILEX 2 MG GUM BUC PRN ×5 (07:43→21:54)
[2019-08-31] MEDS: PRENATAL VITAMINS W/ FOLIC ACID TABLET (FP) PO SCH (09:46)
[2019-08-31] MEDS: SODIUM CHLORIDE NASAL SPRAY 44 ML BOTTLE NS PRN (09:46)
[2019-08-31] MEDS: PANTOPRAZOLE 40 MG TABLET (FP) PO SCH (09:46)
[2019-08-31] MEDS: METHYL SALICYLATE/MENTHOL OINT 30 GM TUBE TP SCH (09:47)
[2019-08-31] MEDS: VITAMINS A AND D TOPICAL OINTMENT 60 GM TUBE TP SCH (09:47)
[2019-08-31] MEDS: NICOTINE 7 MG/24 HOURS TOPICAL PATCH TD SCH (09:47)
[2019-08-31] MEDS: MINERAL OIL/PETROLAT/WATER TOPICAL CREAM 113 GM JAR TP SCH (09:48)
[2019-08-31] MEDS: LIDOCAINE 5% TOPICAL PATCH TP SCH (09:49)
[2019-08-31] MEDS: hydrOXYzine PAMOATE 50 MG CAPSULE (FP) PO PRN (11:35)
[2019-08-31] MEDS: THIAMINE HCL 100 MG TABLET (FP) PO SCH (21:26)
[2019-08-31] MEDS: MIRTAZAPINE 15 MG TABLET (FP) PO SCH (21:26)
[2019-08-31] MEDS: DOCUSATE SODIUM 100 MG CAPSULE (FP) PO SCH (21:27)
[2019-08-31] MEDS: LIDOCAINE PATCH REMOVAL MC SCH (21:27)
[2019-08-31] MEDS: MELATONIN 5 MG TABLETS PO PRN (21:28)
[2019-09-01] MEDS ORDERED: PT OWN MED DRAWER 7, Y5N ONE ×2 (05:51→10:18)
[2019-09-01] MEDS: LEVOTHYROXINE 50 MCG, LEVOTHYROXINE 100 MCG PO SCH (07:40)
[2019-09-01] MEDS: GABAPENTIN 100 MG CAPSULE (FP) PO SCH ×3 (07:41→21:49)
[2019-09-01] MEDS: NICOTINE POLACRILEX 2 MG GUM BUC PRN ×3 (07:43→21:51)
[2019-09-01] MEDS: CYCLOBENZAPRINE HCL 10 MG TABLET (FP) PO SCH ×3 (07:43→21:51)
[2019-09-01] MEDS: MINERAL OIL/PETROLAT/WATER TOPICAL CREAM 113 GM JAR TP SCH (09:33)
[2019-09-01] MEDS: LIDOCAINE 5% TOPICAL PATCH TP SCH (09:33)
[2019-09-01] MEDS: PANTOPRAZOLE 40 MG TABLET (FP) PO SCH (09:33)
[2019-09-01] MEDS: NAPROXEN 500 MG TABLET (FP) PO PRN ×2 (09:33→21:49)
[2019-09-01] MEDS: NICOTINE 7 MG/24 HOURS TOPICAL PATCH TD SCH (09:34)
[2019-09-01] MEDS: METHYL SALICYLATE/MENTHOL OINT 30 GM TUBE TP SCH (09:34)
[2019-09-01] MEDS: PRENATAL VITAMINS W/ FOLIC ACID TABLET (FP) PO SCH (09:35)
[2019-09-01] MEDS: VITAMINS A AND D TOPICAL OINTMENT 60 GM TUBE TP SCH (09:44)
[2019-09-01] MEDS: hydrOXYzine PAMOATE 50 MG CAPSULE (FP) PO PRN ×2 (19:08→21:49)
[2019-09-01] MEDS: DOCUSATE SODIUM 100 MG CAPSULE (FP) PO SCH (21:49)
[2019-09-01] MEDS: THIAMINE HCL 100 MG TABLET (FP) PO SCH (21:49)
[2019-09-01] MEDS: MIRTAZAPINE 15 MG TABLET (FP) PO SCH (21:50)
[2019-09-01] MEDS: LIDOCAINE PATCH REMOVAL MC SCH (21:51)
[2019-09-02] MEDS: GABAPENTIN 100 MG CAPSULE (FP) PO SCH ×3 (07:27→21:28)
[2019-09-02] MEDS: CYCLOBENZAPRINE HCL 10 MG TABLET (FP) PO SCH ×3 (07:27→21:28)
[2019-09-02] MEDS: LEVOTHYROXINE 50 MCG, LEVOTHYROXINE 100 MCG PO SCH (07:28)
[2019-09-02] MEDS: PANTOPRAZOLE 40 MG TABLET (FP) PO SCH (10:38)
[2019-09-02] MEDS: VITAMINS A AND D TOPICAL OINTMENT 60 GM TUBE TP SCH (10:38)
[2019-09-02] MEDS: MINERAL OIL/PETROLAT/WATER TOPICAL CREAM 113 GM JAR TP SCH (10:38)
[2019-09-02] MEDS: LIDOCAINE 5% TOPICAL PATCH TP SCH (10:38)
[2019-09-02] MEDS: SODIUM CHLORIDE NASAL SPRAY 44 ML BOTTLE NS PRN (10:38)
[2019-09-02] MEDS: NICOTINE 7 MG/24 HOURS TOPICAL PATCH TD SCH (10:38)
[2019-09-02] MEDS: PRENATAL VITAMINS W/ FOLIC ACID TABLET (FP) PO SCH (10:38)
[2019-09-02] MEDS: METHYL SALICYLATE/MENTHOL OINT 30 GM TUBE TP SCH (10:42)
[2019-09-02 14:55] LABS: HEMATOCRIT 39.2 % (32.4-45.2); HEMOGLOBIN 12.8 GM/dL (10.7-15.3); MCH 25.6 pg (25.7-33.7); MCHC 32.6 g/dl (32.0-36.0); MEAN CELL VOLUME 78.5 fl (80-96); PLATELET COUNT 253 K/MM3 (134-434); RBC 4.99 M/mm3 (3.60-5.2); RDW 15.8 % (11.6-15.6); WHITE BLOOD COUNT 6.9 K/mm3 (4.0-10.0)
[2019-09-02] MEDS: hydrOXYzine PAMOATE 50 MG CAPSULE (FP) PO PRN (17:40)
[2019-09-02] MEDS: NAPROXEN 500 MG TABLET (FP) PO PRN (17:40)
[2019-09-02] MEDS: NICOTINE POLACRILEX 2 MG GUM BUC PRN ×2 (17:41→19:53)
[2019-09-02] MEDS: MELATONIN 5 MG TABLETS PO PRN (21:27)
[2019-09-02] MEDS: MIRTAZAPINE 15 MG TABLET (FP) PO SCH (21:27)
[2019-09-02] MEDS: THIAMINE HCL 100 MG TABLET (FP) PO SCH (21:27)
[2019-09-02] MEDS: DOCUSATE SODIUM 100 MG CAPSULE (FP) PO SCH (21:27)
[2019-09-02] MEDS: LIDOCAINE PATCH REMOVAL MC SCH (21:28)
[2019-09-03] MEDS: LEVOTHYROXINE 50 MCG, LEVOTHYROXINE 100 MCG PO SCH (06:37)
[2019-09-03] MEDS: GABAPENTIN 100 MG CAPSULE (FP) PO SCH ×3 (06:37→21:21)
[2019-09-03] MEDS: CYCLOBENZAPRINE HCL 10 MG TABLET (FP) PO SCH ×3 (06:37→21:22)
[2019-09-03] MEDS: NICOTINE POLACRILEX 2 MG GUM BUC PRN ×3 (06:39→16:40)
[2019-09-03] MEDS: NAPROXEN 500 MG TABLET (FP) PO PRN ×2 (09:00→21:21)
[2019-09-03] MEDS: PANTOPRAZOLE 40 MG TABLET (FP) PO SCH (09:01)
[2019-09-03] MEDS: METHYL SALICYLATE/MENTHOL OINT 30 GM TUBE TP SCH (09:01)
[2019-09-03] MEDS: NICOTINE 7 MG/24 HOURS TOPICAL PATCH TD SCH (09:01)
[2019-09-03] MEDS: LIDOCAINE 5% TOPICAL PATCH TP SCH (09:01)
[2019-09-03] MEDS: SODIUM CHLORIDE NASAL SPRAY 44 ML BOTTLE NS PRN (09:02)
[2019-09-03] MEDS: VITAMINS A AND D TOPICAL OINTMENT 60 GM TUBE TP SCH (09:04)
[2019-09-03] MEDS: MINERAL OIL/PETROLAT/WATER TOPICAL CREAM 113 GM JAR TP SCH (09:05)
[2019-09-03] MEDS: PRENATAL VITAMINS W/ FOLIC ACID TABLET (FP) PO SCH (09:05)
[2019-09-03] MEDS: MAG HYDROX/AL HYDROX/SIMETH 30 ML UNIT-DOSE CUP PO PRN (13:28)
[2019-09-03] MEDS ORDERED: PT OWN MED DRAWER 7, Y5N ONE ×2 (13:55→15:53)
[2019-09-03] MEDS: hydrOXYzine PAMOATE 50 MG CAPSULE (FP) PO PRN (20:06)
[2019-09-03] MEDS: MIRTAZAPINE 15 MG TABLET (FP) PO SCH (21:21)
[2019-09-03] MEDS: MELATONIN 5 MG TABLETS PO PRN (21:21)
[2019-09-03] MEDS: DOCUSATE SODIUM 100 MG CAPSULE (FP) PO SCH (21:21)
[2019-09-03] MEDS: THIAMINE HCL 100 MG TABLET (FP) PO SCH (21:21)
[2019-09-03] MEDS: LIDOCAINE PATCH REMOVAL MC SCH (21:22)
[2019-09-04] MEDS ORDERED: PT OWN MED DRAWER 7, Y5N ONE ×2 (03:13→11:50)
[2019-09-04] MEDS: LEVOTHYROXINE 50 MCG, LEVOTHYROXINE 100 MCG PO SCH (06:00)
[2019-09-04] MEDS: GABAPENTIN 100 MG CAPSULE (FP) PO SCH ×3 (06:00→21:17)
[2019-09-04] MEDS: CYCLOBENZAPRINE HCL 10 MG TABLET (FP) PO SCH ×3 (06:00→21:17)
[2019-09-04] MEDS: PANTOPRAZOLE 40 MG TABLET (FP) PO SCH (09:53)
[2019-09-04] MEDS: LIDOCAINE 5% TOPICAL PATCH TP SCH (09:53)
[2019-09-04] MEDS: NICOTINE 7 MG/24 HOURS TOPICAL PATCH TD SCH (09:54)
[2019-09-04] MEDS: PRENATAL VITAMINS W/ FOLIC ACID TABLET (FP) PO SCH (09:54)
[2019-09-04] MEDS: METHYL SALICYLATE/MENTHOL OINT 30 GM TUBE TP SCH (09:55)
[2019-09-04] MEDS: VITAMINS A AND D TOPICAL OINTMENT 60 GM TUBE TP SCH (09:55)
[2019-09-04] MEDS: MINERAL OIL/PETROLAT/WATER TOPICAL CREAM 113 GM JAR TP SCH (09:55)
[2019-09-04] MEDS: NAPROXEN 500 MG TABLET (FP) PO PRN ×2 (09:56→21:17)
[2019-09-04] MEDS: NICOTINE POLACRILEX 2 MG GUM BUC PRN ×3 (09:57→21:19)
--- NOTE | 2019-09-04 10:17 | PN ---
Psychiatric Progress Note Vital Signs: Vital Signs Period Temp Pulse Resp BP Sys/Zhou Pulse Ox Last 24 Hr 97.3 F 72 18-18 100/80 Date of Session: 09/04/19 Chief Complaint:: " I feel more depressed and have trouble sleeping." HPI: Patient admitted to for alcohol and cocaine dependence. ROS: Patient is coherent, alert +oriented X3. Current Medications: Active Medications Generic Name Dose Route Start Last Admin Trade Name Freq PRN Reason Stop Dose Admin Acetaminophen 650 mg 08/13/19 20:50 08/25/19 17:10 Tylenol - PO 650 mg Q4H PRN Administration FEVER Al Hydroxide/Mg Hydroxide 30 ml 08/13/19 20:50 09/03/19 13:28 Mylanta Oral Suspension - PO 30 ml Q6H PRN Administration DYSPEPSIA Benztropine Mesylate 0.5 mg 08/21/19 14:08 08/21/19 23:31 Cogentin - PO 0.5 mg Q6H PRN Administration stiffness Cyclobenzaprine HCl 10 mg 08/21/19 11:53 09/04/19 06:00 Flexeril - PO 10 mg TID KRISTIE Administration Docusate Sodium 300 mg 08/19/19 22:00 09/03/19 21:21 Colace - PO 300 mg HS KRISTIE Administration Eucalyptus/Menthol/Phenol/Sorbitol 1 each 08/13/19 20:50 Cepastat Lozenge - MM Q4H PRN SORE THROAT Gabapentin 100 mg 08/13/19 22:00 09/04/19 06:00 Neurontin - PO 100 mg TID KRISTIE Administration Guaifenesin 10 ml 08/13/19 20:50 08/14/19 13:30 Robitussin - PO 10 ml Q6H PRN Administration COUGH Haloperidol 2 mg 08/21/19 14:07 08/21/19 23:31 Haldol - PO 2 mg Q6H PRN Administration AGITATION Hydroxyzine Pamoate 50 mg 08/15/19 21:38 09/03/19 20:06 Vistaril - PO 50 mg Q4H PRN Administration AGITATION Levothyroxine Sodium 50 mcg/ 150 mcg 08/14/19 07:00 09/04/19 06:00 Levothyroxine Sodium 100 mcg PO 150 mcg DAILY@0700 KRISTIE Administration Lidocaine 1 patch 08/16/19 10:00 09/04/19 09:53 Lidoderm Patch - TP 1 patch DAILY KRISTIE Administration Loperamide HCl 4 mg 08/13/19 20:50 Imodium - PO Q6H PRN DIARRHEA Magnesium Citrate 300 ml 08/13/19 20:50 08/24/19 09:36 Citroma - PO 300 ml Q48H PRN Administration CONSTIPATION Magnesium Hydroxide 30 ml 08/13/19 20:50 08/23/19 18:58 Milk Of Magnesia - PO 30 ml DAILY PRN Administration CONSTIPATION Melatonin 5 mg 08/13/19 22:00 09/03/19 21:21 Melatonin PO 5 mg HS PRN Administration INSOMNIA Methyl Salicylate 1 applic 08/14/19 22:00 09/04/19 09:55 Dave-Duval - TP 1 applic DAILY KRISTIE Administration Mirtazapine 30 mg 09/04/19 22:00 Remeron - PO HS KRISTIE Miscellaneous 1 each 08/14/19 22:00 09/03/19 21:22 Lidoderm Patch Removal MC 1 each DAILY@2200 KRISTIE Administration Multi-Ingredient Lotion 1 applic 08/26/19 14:15 09/04/19 09:55 Eucerin (Small Jar) - TP Not Given DAILY KRISTIE Naproxen 500 mg 08/26/19 14:01 09/04/19 09:56 Naprosyn - PO 500 mg BID PRN Administration PAIN LEVEL 6-10 Nicotine 7 mg 08/23/19 10:00 09/04/19 09:54 Nicoderm Patch - TD 7 mg DAILY KRISTIE Administration Nicotine Polacrilex 2 mg 08/13/19 21:25 09/04/19 09:57 Nicorette Gum - BUC 2 mg Q2H PRN Administration NICOTINE REPLACEMENT RX Pantoprazole Sodium 40 mg 08/15/19 10:00 09/04/19 09:53 Protonix - PO 40 mg DAILY KRISTIE Administration Multivit/Folic Acid/Iron 1 tab 08/14/19 10:00 09/04/19 09:54 Vitamins (Sjr) - PO Not Given DAILY KRISTIE Pseudoephedrine/Triprolidine 1 combo 08/13/19 20:50 Actifed - PO TID PRN NASAL CONGESTION Sodium Chloride 2 spray 08/14/19 13:25 09/03/19 09:02 [place] Shelburn Nasal Shelburn - NS 2 sprays TID PRN Administration NASAL CONGESTION Suvorexant 10 mg 09/04/19 22:00 Belsomra PO HS PRN INSOMNIA Thiamine HCl 100 mg 08/13/19 22:00 09/03/19 21:21 Vitamin B1 - PO 100 mg HS KRISTIE Administration Vitamin A/Vitamin D 1 applic 08/14/19 10:00 09/04/19 09:55 Vitamin A & D Top Oint - TP Not Given DAILY KRISTIE Medication(s) Change(s): Yes. Current Side Effect: No Lab tests ordered: No Lab tests reviewed: Yes Provider note:: Patient reports worsening depression. States her depression is worst now then it was upon admission. In addition patient reports sleeping poorly despite accepting Remeron 15mg + Melatonin. Stated to health underwriter that last night was the first time she experienced racing thoughts in a long time. Patient with a history of Bipolar disorder. No monroe noted. Patient calm and cooperative and in good control. Medications reviewed with patient. Patient informed that Haldol 2mg is ordered q6H. Patient has yet to accept haldol. She contined to refuse to accept haldol 5mg HS as she states it is too sedating. Patient educated that haldol 2mg will help decrease racing thoughts and lessen her irritability. Will d/c Remeron 15mg. Will order Remeron 30 HS + Belsroma 10mg HS. Patient denies suicidal/homicidal ideation, audtiory/visual hallucination. Total face to face time:: 25 Mental Status Exam - Mental Status Exam Alert and Oriented to: Time, Place, Person Cognitive Function: Good Patient Appearance: Well Groomed Mood: Sad Affect: Appropriate Patient Behavior: Appropriate, Cooperative Speech Pattern: Appropriate Voice Loudness: Normal Thought Process: Goal Oriented Thought Disorder: Not Present Hallucinations: Denies Suicidal Ideation: Denies Homicidal Ideation: Denies Insight/Judgement: Poor Sleep: Poorly Appetite: Fair Muscle strength/Tone: Normal Gait/Station: Normal Psychiatric Treatment Plan - Problem List (1) Bipolar disorder Current Visit: Yes (2) Cocaine dependence Current Visit: Yes Qualifiers: Substance use status: uncomplicated Qualified Code(s): F14.20 - Cocaine dependence, uncomplicated (3) Substance induced mood disorder Current Visit: Yes (4) Alcohol dependence Current Visit: Yes
[2019-09-04] MEDS: HALOPERIDOL 2 MG TABLET PO PRN (11:51)
[2019-09-04] MEDS: BENZTROPINE MESYLATE 1 MG TABLET (FP) PO PRN (11:51)
--- NOTE | 2019-09-04 12:20 | PN ---
[facility] Progress Note (SOAP) Subjective: patient reports that she had blood in stool. described the blood as streaks on the stool. Was seen by SLEEP TECHNICIAN Li and CBC was drawn. It was determined that patient had hemorrhoids. Patient wants to know result of CBC. Objective: CBC WBC 6.9 K/mm3 (4.0-10.0) 09/02/19 08:35 RBC 4.99 M/mm3 (3.60-5.2) 09/02/19 08:35 Hgb 12.8 GM/dL (10.7-15.3) 09/02/19 08:35 Hct 39.2 % (32.4-45.2) 09/02/19 08:35 MCV 78.5 fl (80-96) L 09/02/19 08:35 MCH 25.6 pg (25.7-33.7) L 09/02/19 08:35 MCHC 32.6 g/dl (32.0-36.0) 09/02/19 08:35 RDW 15.8 % (11.6-15.6) H 09/02/19 08:35 Plt Count 253 K/MM3 (134-434) 09/02/19 08:35 MPV 8.0 fl (7.5-11.1) 09/02/19 08:35 Vital Signs Period Temp Pulse Resp BP Sys/Zhou Pulse Ox Last 24 Hr 97.3 F 72 18-18 100/80 P/E: General: no apparent distress Skin: pale, but usual for patient, conjunctiva and mucous membranes pink Genitourinary: refused abd; soft, non-tender, +BS 09/04/19 12:17 Assessment: hemorrhoids, bleeding HCT/Hgb slightly lower compared with admission, but still within normal limits. 09/04/19 12:19 09/04/19 12:20 Plan: Patient is on colace; started feosol once a day with Vitamin C. Will continue to monitor.
[2019-09-04] MEDS: ACETAMINOPHEN 325 MG TABLET (FP) PO PRN (14:50)
[2019-09-04] MEDS: hydrOXYzine PAMOATE 50 MG CAPSULE (FP) PO PRN (19:03)
[2019-09-04] MEDS: DOCUSATE SODIUM 100 MG CAPSULE (FP) PO SCH (21:17)
[2019-09-04] MEDS: THIAMINE HCL 100 MG TABLET (FP) PO SCH (21:17)
[2019-09-04] MEDS: LIDOCAINE PATCH REMOVAL MC SCH (21:18)
[2019-09-04] MEDS ORDERED: MIRTAZAPINE 15 MG TABLET (FP) ONE (21:19)
[2019-09-04] MEDS: MIRTAZAPINE 30 MG TABLET (FP) PO SCH (21:20)
[2019-09-04] MEDS ORDERED: SUVOREXANT 10 MG TABLET PO PRN (22:00)
[2019-09-05] MEDS ORDERED: PT OWN MED DRAWER 7, Y5N ONE ×3 (05:58→09:02)
[2019-09-05] MEDS: CYCLOBENZAPRINE HCL 10 MG TABLET (FP) PO SCH ×3 (08:28→21:09)
[2019-09-05] MEDS: GABAPENTIN 100 MG CAPSULE (FP) PO SCH ×3 (08:28→21:09)
[2019-09-05] MEDS: LEVOTHYROXINE 50 MCG, LEVOTHYROXINE 100 MCG PO SCH (08:28)
[2019-09-05] MEDS: NICOTINE POLACRILEX 2 MG GUM BUC PRN ×3 (08:31→21:11)
[2019-09-05] MEDS: SODIUM CHLORIDE NASAL SPRAY 44 ML BOTTLE NS PRN ×2 (08:31→09:57)
[2019-09-05] MEDS: LIDOCAINE 5% TOPICAL PATCH TP SCH (09:56)
[2019-09-05] MEDS: NICOTINE 7 MG/24 HOURS TOPICAL PATCH TD SCH (09:56)
[2019-09-05] MEDS: MINERAL OIL/PETROLAT/WATER TOPICAL CREAM 113 GM JAR TP SCH (09:57)
[2019-09-05] MEDS: PRENATAL VITAMINS W/ FOLIC ACID TABLET (FP) PO SCH (09:58)
[2019-09-05] MEDS: FERROUS SO4 325 MG TABLET (FP) PO SCH (09:58)
[2019-09-05] MEDS: PANTOPRAZOLE 40 MG TABLET (FP) PO SCH (09:58)
[2019-09-05] MEDS: ACETAMINOPHEN 325 MG TABLET (FP) PO PRN (09:59)
[2019-09-05] MEDS: METHYL SALICYLATE/MENTHOL OINT 30 GM TUBE TP SCH (10:00)
[2019-09-05] MEDS: VITAMINS A AND D TOPICAL OINTMENT 60 GM TUBE TP SCH (10:00)
[2019-09-05] MEDS: ASCORBIC ACID 500 MG TABLET (FP) PO SCH (10:00)
[2019-09-05] MEDS: MAGNESIUM HYDROX 2400MG/30ML ORAL SUSPENSION 30 ML CUP PO PRN (18:42)
[2019-09-05] MEDS ORDERED: MIRTAZAPINE 15 MG TABLET (FP) ONE (19:35)
[2019-09-05] MEDS: MELATONIN 5 MG TABLETS PO PRN (21:08)
[2019-09-05] MEDS: THIAMINE HCL 100 MG TABLET (FP) PO SCH (21:08)
[2019-09-05] MEDS: DOCUSATE SODIUM 100 MG CAPSULE (FP) PO SCH (21:09)
[2019-09-05] MEDS: LIDOCAINE PATCH REMOVAL MC SCH (21:09)
[2019-09-05] MEDS: NAPROXEN 500 MG TABLET (FP) PO PRN (21:09)
[2019-09-05] MEDS: MIRTAZAPINE 30 MG TABLET (FP) PO SCH (21:10)
[2019-09-06] MEDS ORDERED: PT OWN MED DRAWER 7, Y5N ONE ×4 (03:36→21:23)
[2019-09-06] MEDS: GABAPENTIN 100 MG CAPSULE (FP) PO SCH ×3 (08:10→21:20)
[2019-09-06] MEDS: CYCLOBENZAPRINE HCL 10 MG TABLET (FP) PO SCH ×3 (08:10→21:20)
[2019-09-06] MEDS: LEVOTHYROXINE 50 MCG, LEVOTHYROXINE 100 MCG PO SCH (08:10)
[2019-09-06] MEDS: NICOTINE POLACRILEX 2 MG GUM BUC PRN ×4 (08:12→21:21)
[2019-09-06] MEDS: ASCORBIC ACID 500 MG TABLET (FP) PO SCH (10:07)
[2019-09-06] MEDS: PANTOPRAZOLE 40 MG TABLET (FP) PO SCH (10:08)
[2019-09-06] MEDS: LIDOCAINE 5% TOPICAL PATCH TP SCH (10:08)
[2019-09-06] MEDS: PRENATAL VITAMINS W/ FOLIC ACID TABLET (FP) PO SCH (10:08)
[2019-09-06] MEDS: VITAMINS A AND D TOPICAL OINTMENT 60 GM TUBE TP SCH (10:08)
[2019-09-06] MEDS: METHYL SALICYLATE/MENTHOL OINT 30 GM TUBE TP SCH (10:09)
[2019-09-06] MEDS: FERROUS SO4 325 MG TABLET (FP) PO SCH (10:09)
[2019-09-06] MEDS: NICOTINE 7 MG/24 HOURS TOPICAL PATCH TD SCH (10:09)
[2019-09-06] MEDS: MINERAL OIL/PETROLAT/WATER TOPICAL CREAM 113 GM JAR TP SCH (10:09)
[2019-09-06] MEDS: NAPROXEN 500 MG TABLET (FP) PO PRN (10:10)
[2019-09-06] MEDS: HALOPERIDOL 2 MG TABLET PO PRN ×2 (10:29→21:24)
[2019-09-06] MEDS: hydrOXYzine PAMOATE 50 MG CAPSULE (FP) PO PRN (10:30)
[2019-09-06] MEDS: MAG HYDROX/AL HYDROX/SIMETH 30 ML UNIT-DOSE CUP PO PRN (12:18)
[2019-09-06] MEDS ORDERED: MIRTAZAPINE 15 MG TABLET (FP) ONE (19:43)
[2019-09-06] MEDS: MIRTAZAPINE 30 MG TABLET (FP) PO SCH (21:19)
[2019-09-06] MEDS: DOCUSATE SODIUM 100 MG CAPSULE (FP) PO SCH (21:19)
[2019-09-06] MEDS: LIDOCAINE PATCH REMOVAL MC SCH (21:20)
[2019-09-06] MEDS: MELATONIN 5 MG TABLETS PO PRN (21:20)
[2019-09-06] MEDS: THIAMINE HCL 100 MG TABLET (FP) PO SCH (21:20)
[2019-09-06] MEDS: BENZTROPINE MESYLATE 1 MG TABLET (FP) PO PRN (21:23)
[2019-09-07] MEDS ORDERED: PT OWN MED DRAWER 7, Y5N ONE (03:07)
[2019-09-07] MEDS: CYCLOBENZAPRINE HCL 10 MG TABLET (FP) PO SCH ×3 (08:06→21:28)
[2019-09-07] MEDS: GABAPENTIN 100 MG CAPSULE (FP) PO SCH ×3 (08:06→21:29)
[2019-09-07] MEDS: LEVOTHYROXINE 50 MCG, LEVOTHYROXINE 100 MCG PO SCH (08:06)
[2019-09-07] MEDS: NICOTINE POLACRILEX 2 MG GUM BUC PRN ×2 (08:37→19:33)
[2019-09-07] MEDS: NICOTINE 7 MG/24 HOURS TOPICAL PATCH TD SCH (09:55)
[2019-09-07] MEDS: FERROUS SO4 325 MG TABLET (FP) PO SCH (09:55)
[2019-09-07] MEDS: PANTOPRAZOLE 40 MG TABLET (FP) PO SCH (09:55)
[2019-09-07] MEDS: METHYL SALICYLATE/MENTHOL OINT 30 GM TUBE TP SCH (09:56)
[2019-09-07] MEDS: LIDOCAINE 5% TOPICAL PATCH TP SCH (09:57)
[2019-09-07] MEDS: VITAMINS A AND D TOPICAL OINTMENT 60 GM TUBE TP SCH (09:58)
[2019-09-07] MEDS: PRENATAL VITAMINS W/ FOLIC ACID TABLET (FP) PO SCH (09:58)
[2019-09-07] MEDS: hydrOXYzine PAMOATE 50 MG CAPSULE (FP) PO PRN (09:59)
[2019-09-07] MEDS: NAPROXEN 500 MG TABLET (FP) PO PRN (09:59)
[2019-09-07] MEDS: MINERAL OIL/PETROLAT/WATER TOPICAL CREAM 113 GM JAR TP SCH (10:30)
[2019-09-07] MEDS: MAGNESIUM HYDROX 2400MG/30ML ORAL SUSPENSION 30 ML CUP PO PRN (10:59)
[2019-09-07] MEDS: ASCORBIC ACID 500 MG TABLET (FP) PO SCH (10:59)
[2019-09-07] MEDS: ACETAMINOPHEN 325 MG TABLET (FP) PO PRN (15:22)
[2019-09-07] MEDS ORDERED: MIRTAZAPINE 15 MG TABLET (FP) ONE (20:03)
[2019-09-07] MEDS: LIDOCAINE PATCH REMOVAL MC SCH (21:28)
[2019-09-07] MEDS: DOCUSATE SODIUM 100 MG CAPSULE (FP) PO SCH (21:29)
[2019-09-07] MEDS: MELATONIN 5 MG TABLETS PO PRN (21:29)
[2019-09-07] MEDS: MIRTAZAPINE 30 MG TABLET (FP) PO SCH (21:29)
[2019-09-07] MEDS: THIAMINE HCL 100 MG TABLET (FP) PO SCH (21:29)
[2019-09-07] MEDS ORDERED: SUVOREXANT 10 MG TABLET PO PRN (22:00)
[2019-09-07] MEDS: HALOPERIDOL 2 MG TABLET PO PRN (22:32)
[2019-09-07] MEDS: BENZTROPINE MESYLATE 1 MG TABLET (FP) PO PRN (22:32)
[2019-09-08] MEDS: CYCLOBENZAPRINE HCL 10 MG TABLET (FP) PO SCH ×3 (06:45→21:57)
[2019-09-08] MEDS: GABAPENTIN 100 MG CAPSULE (FP) PO SCH ×3 (06:45→21:57)
[2019-09-08] MEDS: NICOTINE POLACRILEX 2 MG GUM BUC PRN ×3 (07:20→17:49)
[2019-09-08] MEDS: LEVOTHYROXINE 50 MCG, LEVOTHYROXINE 100 MCG PO SCH (08:30)
[2019-09-08] MEDS: LIDOCAINE 5% TOPICAL PATCH TP SCH (09:37)
[2019-09-08] MEDS: FERROUS SO4 325 MG TABLET (FP) PO SCH (09:38)
[2019-09-08] MEDS: PANTOPRAZOLE 40 MG TABLET (FP) PO SCH (09:38)
[2019-09-08] MEDS: PRENATAL VITAMINS W/ FOLIC ACID TABLET (FP) PO SCH (09:38)
[2019-09-08] MEDS: SODIUM CHLORIDE NASAL SPRAY 44 ML BOTTLE NS PRN (09:39)
[2019-09-08] MEDS: MINERAL OIL/PETROLAT/WATER TOPICAL CREAM 113 GM JAR TP SCH (09:39)
[2019-09-08] MEDS: METHYL SALICYLATE/MENTHOL OINT 30 GM TUBE TP SCH (09:39)
[2019-09-08] MEDS: ASCORBIC ACID 500 MG TABLET (FP) PO SCH (09:39)
[2019-09-08] MEDS: NAPROXEN 500 MG TABLET (FP) PO PRN (09:41)
[2019-09-08] MEDS ORDERED: PT OWN MED DRAWER 7, Y5N ONE ×4 (09:41→21:56)
[2019-09-08] MEDS: NICOTINE 7 MG/24 HOURS TOPICAL PATCH TD SCH (09:42)
[2019-09-08] MEDS: VITAMINS A AND D TOPICAL OINTMENT 60 GM TUBE TP SCH (09:42)
[2019-09-08] MEDS: HALOPERIDOL 2 MG TABLET PO PRN ×2 (13:00→21:57)
[2019-09-08] MEDS: BENZTROPINE MESYLATE 1 MG TABLET (FP) PO PRN (13:01)
[2019-09-08] MEDS: hydrOXYzine PAMOATE 50 MG CAPSULE (FP) PO PRN (18:45)
[2019-09-08] MEDS ORDERED: MIRTAZAPINE 15 MG TABLET (FP) ONE (19:44)
[2019-09-08] MEDS: DOCUSATE SODIUM 100 MG CAPSULE (FP) PO SCH (21:57)
[2019-09-08] MEDS: THIAMINE HCL 100 MG TABLET (FP) PO SCH (21:57)
[2019-09-08] MEDS: MIRTAZAPINE 30 MG TABLET (FP) PO SCH (21:59)
[2019-09-08] MEDS: LIDOCAINE PATCH REMOVAL MC SCH (21:59)
[2019-09-09] MEDS: NICOTINE POLACRILEX 2 MG GUM BUC PRN ×3 (00:42→17:32)
[2019-09-09] MEDS: CYCLOBENZAPRINE HCL 10 MG TABLET (FP) PO SCH ×3 (07:23→21:34)
[2019-09-09] MEDS: GABAPENTIN 100 MG CAPSULE (FP) PO SCH ×3 (07:23→21:33)
[2019-09-09] MEDS: LEVOTHYROXINE 50 MCG, LEVOTHYROXINE 100 MCG PO SCH (07:24)
[2019-09-09] MEDS ORDERED: PT OWN MED DRAWER 7, Y5N ONE (08:59)
[2019-09-09] MEDS: LIDOCAINE 5% TOPICAL PATCH TP SCH (09:44)
[2019-09-09] MEDS: ASCORBIC ACID 500 MG TABLET (FP) PO SCH (09:44)
[2019-09-09] MEDS: PANTOPRAZOLE 40 MG TABLET (FP) PO SCH (09:45)
[2019-09-09] MEDS: NICOTINE 7 MG/24 HOURS TOPICAL PATCH TD SCH (09:45)
[2019-09-09] MEDS: FERROUS SO4 325 MG TABLET (FP) PO SCH (09:45)
[2019-09-09] MEDS: METHYL SALICYLATE/MENTHOL OINT 30 GM TUBE TP SCH (09:46)
[2019-09-09] MEDS: MINERAL OIL/PETROLAT/WATER TOPICAL CREAM 113 GM JAR TP SCH (09:46)
[2019-09-09] MEDS: PRENATAL VITAMINS W/ FOLIC ACID TABLET (FP) PO SCH (09:47)
[2019-09-09] MEDS: VITAMINS A AND D TOPICAL OINTMENT 60 GM TUBE TP SCH (09:47)
--- NOTE | 2019-09-09 12:45 | DS ---
[facility] Rehab Discharge Summary - [facility] Rehab Discharge Summary Admission Date: 08/13/19 Discharge Date: 09/10/19 - History Present History: Alcohol dependence, Cocaine dependence, Opioid dependence Pertinent Past History: History of Present Illness: norma was in rehab one month ago then relapsed she reports she cannot maintain more than 1 week of abstinence crack cocaine is on rx xanax, adderral(not taken), atarax,synthroid 150mg - Discharge Physical Exam Vital Signs: Vital Signs Temperature 98.1 F 09/09/19 06:51 Pulse Rate 81 09/09/19 11:10 Respiratory Rate 16 09/09/19 06:51 Blood Pressure 104/71 09/09/19 11:10 O2 Sat by Pulse Oximetry (%) Pertinent Admission Physical Exam Findings: Physical General Appearance: No apparent distress HEENTM: Normocephalic Respiratory: Lungs Clear, Normal Breath Sounds Neck: supple Cardiology: S1, S2 Abdominal: +Bowel Sounds, Non Tender Musculoskeletal: Full range of Motion, Gait Steady, Neurological: loss prevention supervisor II-XII NML intact, Fully Oriented, Alert, Motor Strength 02/23 - Treatment Discharge Condition: Discharge condition good (medically stable for discharge. Patient will go to help center.) Hospital Course: patient attended groups, had 1:1 meetings with her counselor. All medical issues were addressed. Patient was adherent to the treatment plan and medication regimen. - Medication Discharge Medications: Ambulatory Orders Fluoxetine HCl [Prozac -] 20 mg PO DAILY #30 capsule 11/05/15 Haloperidol [Haldol -] 5 mg PO HS PRN #30 tablet 11/05/15 Gabapentin [Neurontin -] 100 mg PO Q8H #90 capsule 11/09/15 Alprazolam [Xanax] 2 mg PO DAILY 08/13/19 Hydroxyzine HCl 50 mg PO HS 08/13/19 Mirtazapine 15 mg PO HS 08/21/19 Levothyroxine Sodium [Unithroid] 150 mcg PO DAILY #14 tablet 09/09/19 - Discharge Instructions Diet, activity, other medical instructions: Diet: as tolerated Activity: as tolerated Other medical instructions: Please follow up with aftercare referral and make an appointment with PCP within 2 weeks of discharge. - Diagnosis (1) Alcohol dependence Current Visit: Yes Status: Chronic (2) Cocaine dependence Current Visit: Yes Status: Chronic Qualifiers: Substance use status: uncomplicated Qualified Code(s): F14.20 - Cocaine dependence, uncomplicated (3) Opiate dependence Current Visit: No Status: Chronic Qualifiers: Substance use status: uncomplicated Qualified Code(s): F11.20 - Opioid dependence, uncomplicated - Follow-up Referral Minutes to complete discharge: 20 - AMA Did Patient Leave Against Medical Advice: No
[2019-09-09] MEDS: NAPROXEN 500 MG TABLET (FP) PO PRN (21:33)
[2019-09-09] MEDS: MIRTAZAPINE 30 MG TABLET (FP) PO SCH (21:33)
[2019-09-09] MEDS: DOCUSATE SODIUM 100 MG CAPSULE (FP) PO SCH (21:33)
[2019-09-09] MEDS: THIAMINE HCL 100 MG TABLET (FP) PO SCH (21:33)
[2019-09-09] MEDS: MELATONIN 5 MG TABLETS PO PRN (21:34)
[2019-09-09] MEDS: LIDOCAINE PATCH REMOVAL MC SCH (21:34)
[2019-09-10] MEDS ORDERED: PT OWN MED DRAWER 7, Y5N ONE (06:11)
[2019-09-10] MEDS: CYCLOBENZAPRINE HCL 10 MG TABLET (FP) PO SCH (06:33)
[2019-09-10] MEDS: GABAPENTIN 100 MG CAPSULE (FP) PO SCH (06:34)
[2019-09-10] MEDS: LEVOTHYROXINE 50 MCG, LEVOTHYROXINE 100 MCG PO SCH (06:35)
[2019-09-10] MEDS: NICOTINE POLACRILEX 2 MG GUM BUC PRN (06:38)
[2019-09-10 06:59] VITALS: BP 131/76; PULSE 84; TEMP 97.7
[2019-09-10] MEDS: NICOTINE 7 MG/24 HOURS TOPICAL PATCH TD SCH (09:27)
[2019-09-10] MEDS: ASCORBIC ACID 500 MG TABLET (FP) PO SCH (09:27)
[2019-09-10] MEDS: LIDOCAINE 5% TOPICAL PATCH TP SCH (09:27)
[2019-09-10] MEDS: NAPROXEN 500 MG TABLET (FP) PO PRN (09:28)
[2019-09-10] MEDS: METHYL SALICYLATE/MENTHOL OINT 30 GM TUBE TP SCH (09:31)
[2019-09-10] MEDS: FERROUS SO4 325 MG TABLET (FP) PO SCH (09:31)
[2019-09-10] MEDS: PANTOPRAZOLE 40 MG TABLET (FP) PO SCH (09:31)
[2019-09-10] MEDS: MINERAL OIL/PETROLAT/WATER TOPICAL CREAM 113 GM JAR TP SCH (09:31)
[2019-09-10] MEDS: VITAMINS A AND D TOPICAL OINTMENT 60 GM TUBE TP SCH (09:31)
[2019-09-10] MEDS: PRENATAL VITAMINS W/ FOLIC ACID TABLET (FP) PO SCH (09:31)
== END 2019-09-10 09:40 | disposition home or self-care (01) | DRG 772 ==
LOC: YASAS 14:57 → Y3E 20:26
PROVIDERS: ADMIT Neuromusculoskeletal Medicine & OMM; ATTEND Neuromusculoskeletal Medicine & OMM
PROC: HZ42ZZZ Group Counseling for Substance Abuse Treatment, Cognitive-Behavioral (ICD-10-PCS; principal; 2019-08-13)
DX: F10.20 Alcohol dependence, uncomplicated (principal); F14.20 Cocaine dependence, uncomplicated; F17.210 Nicotine dependence, cigarettes, uncomplicated; F31.81 Bipolar II disorder; F19.24 Other psychoactive substance dependence with psychoactive substance-induced mood disorder; N28.9 Disorder of kidney and ureter, unspecified; G62.9 Polyneuropathy, unspecified; K62.5 Hemorrhage of anus and rectum; R35.0 Frequency of micturition; R82.998 Other abnormal findings in urine; M54.9 Dorsalgia, unspecified; R07.9 Chest pain, unspecified; K30 Functional dyspepsia; M25.471 Effusion, right ankle; Z62.810 Personal history of physical and sexual abuse in childhood; Z20.2 Contact with and (suspected) exposure to infections with a predominantly sexual mode of transmission; Z88.1 Allergy status to other antibiotic agents; Z88.2 Allergy status to sulfonamides; Z86.19 Personal history of other infectious and parasitic diseases; Z91.5 Personal history of self-harm
CPT/HCPCS: 36415; 80053; 81003; 81025; 85027; 86593; 87077; 87086; 87389; 87491; 87591; 87661